=== PATIENT | female | born 1970 | race Caucasian/White ===

== ENCOUNTER 2025-06-04 08:20 | Outpatient (REF) | payer MEDICAID, SELFPAY ==
--- OUTSIDE RECORDS SUMMARY | 2025-06-04 08:32 | XMS_ITS | Clinical Summary ---
Author Organization [employer] Address [address] [facility] [address] [place] [address] Care Team Providers Care Linux Devops Engineer Name Role Phone Shanda Murillo MD Primary Care Pro vider Allergies No known active allergies Medications zolpidem (Ambien) 10 MG tabletIndicatio ns:Primary insomnia TAKE 1 TABLET ORALLY 1 HOUR BEFORE BEDTIME NEEDED FOR SLEEP 28 tablet 5 Active omeprazole (PriLOSEC) [address] hopeIndmarv ons:Heartburn TAKE 1 CAPSULE BY MOUTH BEFORE BREAKFAST. DO NOT CRUSH OR CHEW. 90 capsule 5 Active Propylene Glycol-Glycerin 1-0.3 % solution Administer 1 drop into affected eye(s) every 12 (twelve) hours if needed (dry eye). 15 mL 11 5 Active cloNIDine (Catapres) 0.1 MG tablet Take 1 tablet (0.1 mg) by mouth at bedtime. 30 tablet 1 5 025 Active OIL OF [place]O PO Take by mouth. Activ e fluticasone (Flonase) 50 MCG/ACT nasal sprayIndication s:Seasonal allergies SPRAY 2 SPRAYS INTO EACH NOSTRIL IN THE MORNING 48 mL 4 025 Discontinu ed(Other) ketotifen (Zaditor) 0.025 % ophthalmic solutionIndicat ions:Seasonal allergies ADMINISTER 1 DROP INTO THE AFFECTED EYE(S) EVERY 12 HOURS 5 mL 3 4 025 Discontinu ed(Other) estradiol (Estrace) 0.1 MG/GM vaginal creamIndication s:Vasomotor symptoms due to menopause Insert cream into vagina nightly x 2 weeks; then apply 1-3 times a week 42.5 g 2 4 025 Discontinu ed(Other) ibuprofen 400 MG tabletIndicatio ns:Health care maintenance TAKE 1 TABLET BY MOUTH EVERY 6 HOURS IF NEEDED FOR MODERATE PAIN. 30 tablet 5 025 Discontinu ed(Other) venlafaxine XR (Effexor XR) 37.5 MG 24 hr capsuleIndicati ons:Vasomotor symptoms due to menopause TAKE 1 CAPSULE BY MOUTH EVERY DAY DO NOT CRUSH OR CHEW 90 capsule 5 025 Discontinu ed(Other) zoster vaccine-recombi nant adjuvanted (Shingrix) 50 MCG/0.5ML vaccine Inject 0.5 mL (50 mcg) into the muscle 1 (one) time for 1 dose. 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 Declines COVID vaccine. Educated pt to come to vaccine clinic for flu vaccine Tdap up to date HIV: non-reactive 09/13/2020 Hep C: non-reactive 09/13/2020 Hepatitis B: Surface antibodies negative on 09/13/20 Pap Smear: About 3-4 years, per pt. Will task [place] to locate records. Mammogram: 05/23/2019 BIRADS 1, Due BMD: >age 65 Colonoscopy: Due, no hx of screening. Discussed options. Pt chose Cologuard. Order sent. Lung cancer: Never smoker Eye: Discuss at next visit Dental: Discuss at next visit Seasonal allergies 01/18/2023 Polyp of corpus uteri 08/25/2017 Dyslipidemia 08/11/2016 Heartburn 08/05/2016 Overview (07/14/2023): Pt reports continued GERD, improved with Omeprazole Refill Avoid triggers: eating late, lying down < 30 min after eating, spicy food, caffeine, chocolate, greasy foods. Assessment & Plan (07/14/2023 7:38 PM EDT): F/u 2-3 months with new PCP Insomnia 08/05/2016 Overview (07/14/2023): Reports insomnia chronic No safety concerns Continue Ambien Assessment & Plan (07/14/2023 7:35 PM EDT): Next steps: unclear if pt has tried Trazodone or other medications that are not as strong for sleep assistance Pt should have enough ambien for about 1 month F/u PRN with new PCP Myopia 08/05/2016 Encounters Date Type Department Care Team Description 05/10/2025 1:45 PM EDT Office Visit [facility] [address] [place] [id number] Shanda Murillo MD Breast cancer screening by mammogram (Primary Dx); Colon cancer screening; Gastroesophageal reflux disease without esophagitis; Annual physical exam; Dietary counseling; Exercise counseling; Overweight (BMI 25.0-29.9); Dyslipidemia; Heartburn; Vasomotor symptoms due to menopause; Health care maintenance; Other insomnia 05/10/2025 Travel 05/09/2025 Telephone [facility] [address] [place] [address] Shanda Murillo MD Chart Prep 05/01/2025 Patient Outreach [facility] [address] [place] [address] Shanda Murillo MD Pre-visit Planning (SDOH negative, Tobacco screening negative. ) 04/30/2025 Refill [facility] [address] [place] [address] [place], [place], [employer]IED HE[employer] TE[employer]ER Heartburn 04/27/2025 Refill [facility] [address] [facility] [address] [facility] [place], [place] [phone] Shanda Murillo MD Primary insomnia; Heartburn 03/28/2025 Refill [facility] [address] [facility] [address] [facility] [place], [place] [phone] Shanda Murillo MD Primary insomnia from Last 3 Months Immunizations Immunization Administration Dates Next Due Hep B, adult 09/13/2017,05/15/2016,03/11/2016 Influenza injectable quadriv alent IIV4 with preservative 08/05/2016 Influenza injectable quadriv alent preservative free 08/06/2017 Tdap 08/06/2017 Family History Medical History Relation Name Comments Pancreatic cancer Father Relation Name Status Comments Father Social History Tobacco Use Types Packs/Day Years Used Date Smoking Tobacco: Never Smokeless Tobacco: Never Comments:Started smoking at her 15 y of age stopped at 32 y of age, average smoked 5 cig a day ,smoked total 17 y,stopped 23 y ago already Alcohol Use Standard Drinks/Week Comments Not Currently 0 (1 standard drink = 0.6 oz pur e alcohol) Depression Answer Date Recorded Patient Health Questionnaire-9 Score 0 05/10/2025 Patient Health Questionnaire-9 Score 0 05/10/2025 Last PHQ-9: Questionnaire Data Not on file 0 05/10/2025 Housing Stability Answer Date Recorded What is your housing situation today? I have ash parra 05/01/[address] you li ve. Do you have problems with any of the following? None of the above 05/01/2025 Food Insecurity Answer Date Recorded Within the past 12 months, y ou worried that your food would run out before you got money to buy more: Never True 05/01/2025 Within the past 12 months,th e food you bought just didn't last and you didn't have enough money to get more: Never True 11/2024 Transportation Answer Date Recorded In the past 12 months, has l ack of transportation kept you from medical appts, meetings, work or from getting things needed for daily living? No 05/01/2025 Utilities Answer Date Recorded In the past 12 months, has t he electric, gas, oil or water company threatened to shut off services in your home? No 05/01/2025 Depression Answer Date Recorded Patient Health Questionnaire-2 Score 0 05/10/2025 Internet Access Answer Date Recorded Internet Access Q1 Yes 05/01/2025 Internet Access Q2 Not on file 05/01/2025 Comments Unknown Sex and Gender Information Value Date Recorded Sex Assigned at Female 08/31/2022 10:15 AM EDT Legal Sex Female 10:15 AM EDT Gender Identity Female 08/31/2022 10:15 AM EDT Sexual Orientation Straight 05/10/2025 2: 13 PM EDT Last Filed Vital Signs Vital Sign Reading Time Taken Comments Blood Pressure 138/82 05/10/2025 1:24 PM EDT Pulse 74 05/10/2025 1:24 PM EDT Temperature 36.2 C (97.1 F) 05/10/2025 1:24 PM EDT Respiratory Rate 20 05/10/2025 1:24 PM EDT Oxygen Saturation 99% 05/10/2025 1:24 PM EDT Inhaled Oxygen Concentration - - Weight 71.8 kg (158 lb 6.4 oz) 05/10/2025 1:24 P M EDT Height 154.9 cm (5' 1 ) 05/10/2025 1:24 PM EDT Body Mass Index 29.93 05/10/2025 1:24 PM EDT Plan of Treatment Health Maintenance Due Date Last Done Comments CT Colonography 1969 Colonoscopy 1969 Colorectal Cancer Screening 1969 FIT DNA/Cologuard 1969 FIT 1969 FOBT 1969 Sigmoidoscopy 1969 Pap Smear 1990 Cervical Cancer Screening 1999 HPV/Cotest 1999 Pneumococcal Vaccine: 50+ Years (1 of 1 - PCV) 2019 Zoster Vaccines (1 of 2) 2019 Mammogram 05/24/2021 05/24/2019 COVID-19 Vaccine (1 - 2023-2 5 season) 2024 Influenza Vaccine (#1) 2025 7, 08/05/2016 SDOH Screening 05/01/2026 05/01/2025 Alcohol/Substance Use Screening 05/10/2026 05/10/2025 Depression Screening 05/10/2026 05/10/2025, 05/10/2025 Disability Screening 05/10/2026 05/10/2025 Tobacco Screening 05/10/2026 05/10/2025 DTaP/Tdap/Td Vaccines (2 - T d or Tdap) 08/06/2027 08/06/2017 RSV Patients and Patients Aged 60 years or older (1 - 1-dose 75+ series) 01/07/2044 Hepatitis B Vaccines Completed 09/13/2017, 05/15/2016, 03/11/2016 HIV Screening Completed 09/13/2020 Hepatitis C Screening Completed 09/13/2020 HIB Vaccines Aged Out No longer eligi ble based on patient's age to complete this topic HPV Vaccines Aged Out No longer eligi ble based on patient's age to complete this topic Hepatitis A Vaccines Aged Out No long er eligible based on patient's age to complete this topic IPV Vaccines Aged Out No longer eligi ble based on patient's age to complete this topic Meningococcal B Vaccine Aged Out No l onger eligible based on patient's age to complete this topic Meningococcal Vaccine Aged Out No gato bhavin eligible based on patient's age to complete this topic RSV under 20 months Aged Out No longe r eligible based on patient's age to complete this topic Rotavirus Vaccines Aged Out No longer eligible based on patient's age to complete this topic Procedures Procedure Name Priority Date/Time Associated Diagnosis Comments ZZZ HISTORICAL HEPATITIS C AB W/REFL TO HCV RNA, QN, PCR Routine 09/13/2020 9:36 AM EST HIV 1/2 ANTIGEN/ANTIBODY, FOURTH GENERATION W/RFL Routine 09/13/2020 9:36 AM EST BI MAMMOGRAM SCREENING BILATERAL Routine 05/24/2019 11:25 AM EDT from Last 3 Months or Most Recently Relevant to Health Maintenance Results * HEPATITIS C AB W/REFL TO HCV RNA, QN, PCR (09/13/2020 9:36 AM EST) HEPATITIS C ANTIBODY NON-REACT KASI NON-REACT KASI [facility] INDEX 0.02 <1.00 [facility] Comment: HCV antibody was non-reactive. There is no laboratory evidence of HCV infection. In most cases, no further action is required. However, if recent HCV exposure is suspected, a test for HCV RNA (test code 11219) is suggested. For additional information please refer to http://ToyTalk/faq/WTL07x9 (This link is being provided for informational/ educational purposes only.) HEPATITIS C ANTIBODY NON-REACT KASI NON-REACT KASI [facility] INDEX 0.02 <1.00 [facility] Comment: HCV antibody was non-reactive. There is no laboratory evidence of HCV infection. In most cases, no further action is required. However, if recent HCV exposure is suspected, a test for HCV RNA (test code 64902) is suggested. For additional information please refer to http://ToyTalk/faq/TEB15d4 (This link is being provided for informational/ educational purposes only.) HEPATITIS C ANTIBODY NON-REACT KASI NON-REACT KASI [facility] INDEX 0.02 <1.00 [facility] Comment: HCV antibody was non-reactive. There is no laboratory evidence of HCV infection. In most cases, no further action is required. However, if recent HCV exposure is suspected, a test for HCV RNA (test code 86774) is suggested. For additional information please refer to http://ToyTalk/faq/HGN89p5 (This link is being provided for informational/ educational purposes only.) 09/13/2020 9:36 AM EST Sanket Villaseñor MD HISTORICAL/NON ORDERABLE LABS Fi nal Result [facility] [address] * HIV 1/2 ANTIGEN/ANTIBODY,FOURTH GENERATION W/RFL (09/13/2020 9:36 AM EST) HIV-1/2 ANTIGEN AND ANTIBODIES, 4TH GENERATION W/ REFLEX NON-REACT KASI NON-REACT KASI [facility] Comment: HIV-1 antigen and HIV-1/HIV-2 antibodies were not detected. There is no laboratory evidence of HIV infection. PLEASE NOTE: This information has been disclosed to you from records whose confidentiality may be protected by state law. If your state requires such protection, then the state law prohibits you from making any further disclosure of the information without the specific written consent of the person to whom it pertains, or as otherwise permitted by law. A general authorization for the release of medical or other information is NOT sufficient for this purpose. For additional information please refer to http://Glimpse.com.Wabeebwa/faq/RPQ458 (This link is being provided for informational/ educational purposes only.) The performance of this assay has not been clinically validated in patients less than 2 years old. HIV-1/2 ANTIGEN AND ANTIBODIES, 4TH GENERATION W/ REFLEX NON-REACT KASI NON-REACT KASI [facility] Comment: HIV-1 antigen and HIV-1/HIV-2 antibodies were not detected. There is no laboratory evidence of HIV infection. PLEASE NOTE: This information has been disclosed to you from records whose confidentiality may be protected by state law. If your state requires such protection, then the state law prohibits you from making any further disclosure of the information without the specific written consent of the person to whom it pertains, or as otherwise permitted by law. A general authorization for the release of medical or other information is NOT sufficient for this purpose. For additional information please refer to http://ToyTalk/faq/TYT154 (This link is being provided for informational/ educational purposes only.) The performance of this assay has not been clinically validated in patients less than 2 years old. HIV-1/2 ANTIGEN AND ANTIBODIES, 4TH GENERATION W/ REFLEX NON-REACT KASI NON-REACT KASI [facility] Comment: HIV-1 antigen and HIV-1/HIV-2 antibodies were not detected. There is no laboratory evidence of HIV infection. PLEASE NOTE: This information has been disclosed to you from records whose confidentiality may be protected by state law. If your state requires such protection, then the state law prohibits you from making any further disclosure of the information without the specific written consent of the person to whom it pertains, or as otherwise permitted by law. A general authorization for the release of medical or other information is NOT sufficient for this purpose. For additional information please refer to http://ToyTalk/faq/XAK999 (This link is being provided for informational/ educational purposes only.) The performance of this assay has not been clinically validated in patients less than 2 years old. 09/13/2020 9:36 AM EST Sanket Villaseñor MD LAB BLOOD ORDERABLES Final Resul t [facility] [address] * DIGITAL BILATERAL SCREEN 1 (05/24/2019 11:25 AM EDT) Anatomical Region Laterality Modality Breast Bilateral Mammography 05/24/2019 11:2 5 AM EDT Narrative 05/24/2019 11:25 AM EDT Refer to the Notes tab for result details [facility] Procedure: DIGITAL BILATERAL SCREEN 1 Procedure Note Provider, MD Halina - 01/23/2023 Refer to the Notes tab for result details [place] Procedure: DIGITAL BILATERAL SCREEN 1 Sanket Villaseñor MD IMG BI PROCEDURES Final Result from Last 3 Months or Most Recently Relevant to Health Maintenance Insurance [facility] C3 Care Teams Linux Devops Engineer Relationship Specialty Start Date End Date Shanda Murillo MD [address] [place] [address] [phone] PCP - General Internal Medicine 08/05/23
--- OUTSIDE RECORDS SUMMARY | 2025-06-04 08:33 | XMS_ITS | Patient Health Record ---
Author Organization [facility] [facility] Address [address] [place] [address] Care Team Providers Care Mixologist Name Role Phone JESS [employer] [employer] Primary Care Provider Reason For Referral No Information Immunizations Vaccine Route Administration Date Status Comme nts Moderna COVID-19 Vaccine 1era Dosis HRSA IM Intramuscular 05/06/2021 Administered Social History Sex Assigned At : Social History Observation Description Sex Assigned At Female Plan Of Treatment No Information Insurance Providers Payer Name Payer Address Payer Phone Subscriber Number Group Number Insured Name Patient Relationship to Insured Coverage Start Date Coverage End Date [employer] [address] [place] [id number] [phone] [employer] Self - patient is the insured
[2025-06-04 11:40] LABS: Hematocrit 37.7 % (37.0-47.0); Hemoglobin 12.2 g/dl (12.0-16.0); Mean Corpuscular HGB Conc 32.4 g/dl (31.0-35.0); Mean Corpuscular Hemoglobin 28.0 pg (27.0-33.0); Mean Corpuscular Volume 86.5 fL (80.0-98.0); NRBC Abs Auto 0.000 X10*3/uL (0.0-0.012); NRBC Pct Auto 0.0 /100WBC (0.0-0.2); Platelet Count 297 X10*3/uL (160-400); Red Blood Count 4.36 X10*6/uL (4.20-5.50); White Blood Count 4.2 X10*3/uL (4.8-10.8)
[2025-06-04 11:42] LABS: Hemoglobin A1C 112.2170 umol/L; Total Hemoglobin (HGBA1C) 3279.6270 umol/L
[2025-06-04 12:02] LABS: Alanine Aminotransferase 21 U/L (0-31); Albumin Level 4.5 g/dL (3.5-5.0); Alkaline Phosphatase 61 U/L (39-117); Anion Gap 11 (12-20); Aspartate Amino Transferase 27 U/L (5-31); Blood Urea Nitrogen 15 mg/dL (9-16); Calcium 9.8 mg/dL (8.4-10.2); Carbon Dioxide 30 mmol/L (22-29); Chloride 107 mmol/L (96-108); Cholesterol 286 mg/dL (<200); Estimated Glomerular Filt Rate > 60; HDL Cholesterol 52 mg/dL (>40); Potassium 4.3 mmol/L (3.3-5.1); Sodium 144 mmol/L (135-145); Total Protein 7.7 g/dL (6.5-8.0); Triglycerides 170 mg/dL (<150)
[2025-06-04 12:05] LABS: Syphilis Screen Nonreactive (Nonreactive)
[2025-06-04 12:16] LABS: HBS Num1 1.71 mIU/mL (0-7.99); HBc Num1 0.12 S/CO (0.00-0.79); HBsAGNum1 0.54 S/CO (0.00-0.99); HIV Num 1 0.05 S/CO (0.00-0.99); Hepatitis B Surface Antigen Negative (Negative); ~HepC Num1 0.21 S/CO (0.00-0.79); ~Hepatitis B Surface Antibody NONREACTIVE (Nonreactive); ~Hepatitis C Antibody Nonreactive (Nonreactive)
[2025-06-04 13:03] LABS: CT PCR Urine NOT DETECTED (Not Detect.); NG PCR Urine NOT DETECTED (Not Detect.)
== END 2025-06-04 08:21 | disposition home or self-care (01) ==
LOC: HO.HHCL 08:20
PROVIDERS: PCP Student in an Organized Health Care Education/Training Program; Visit Provider Student in an Organized Health Care Education/Training Program
DX: Z00.00 Encounter for general adult medical examination without abnormal findings (principal); Z11.3 Encounter for screening for infections with a predominantly sexual mode of transmission; Z11.4 Encounter for screening for human immunodeficiency virus [HIV]; Z11.8 Encounter for screening for other infectious and parasitic diseases; Z11.59 Encounter for screening for other viral diseases
CPT/HCPCS: 36415; 80053; 80061; 82306; 83036; 84443; 85027; 86704; 86706; 86780; 86803; 87340; 87389; 87491; 87591